=== PATIENT | female | born 1995 | race Caucasian/White ===

== ENCOUNTER 2016-10-05 12:42 | Emergency (ER) | payer SELFPAY ==
[2016-10-05 12:47] VITALS: BP 135/82; BMI 23.6
--- NOTE | 2016-10-05 15:36 | DR.GENAD ---
HPI - PCP Primary Care Physician: CLARE - Complaint/Symptoms Chief Complaint Doctors Comments: Patient admits to taking lots of school book in her shoulder bag. Lately she has noticed pain in right shoulder and between the scapulars Chief Complaint:: PT C/O RT UPPER BACK/ SHOULDER PAIN. PT STATES HER PAIN STARTED THIS PAST WEEK. - Source History Provided: Patient - Mode of Arrival Mode of Arrival: Ambulatory - Timing Onset of Chief Complaint: 10/01/16 PMH - PMH Past Medical History: No Past Surgical History: No Surgical History: No History - Family History History of Family Medical Conditions: No - Social History Does any household member use tobacco: No Alcohol Use: None Do you use any recreational Drugs:: No Lives With: Family Lives Where: Home - infectious screening In the last 2 months have you had wt loss of >10#?: NO Have you had fever, night sweats or hemotysis?: No Have you traveled outside the country in the last 6 months?: No Isolation: Standard ROS - Review of Systems Constitutional: negative: Diaphoresis Eyes: No Symptoms Reported ENTM: No Symptoms Reported Respiratoy: No Symptoms Reported Cardiovascular: No Symptoms Reported Gastrointestinal/Abdominal: No Symptoms Reported Genitourinary: No Symptoms Reported Neurological: No Symptoms Reported Musculoskeletal: No Symptoms Reported Integumentary: No Symptoms Reported Hematologic/Lymphatic: No Symptoms Reported Endocrine: No Symptoms Reported Psychiatric: No Symptoms Reported All Other Systems: Reviewed and Negative PE - Vital Signs Vitals: Temperature 98.3 F Pulse Rate 100 Respiratory Rate 20 Blood Pressure 135/82 O2 Sat by Pulse Oximetry 99 - General Limitations: No Limitations General Appearance: Alert, In No Apparent Distress - Head Head Exam: Normal Inspection, Atraumatic - Eyes Eye exam: Normal Appearance, PERRL, EOMI - ENT ENT Exam: Normal Exam External Ear Exam: Normal External Inspection TM/Canal Exam: Bilateral Normal Nose Exam: Normal Nose Exam Mouth Exam: Normal Inspection Throat Exam: Normal Inspection - Neck Neck Exam: Normal Inspection - Chest Chest Inspection: Normal Inspection - Respiratory Respiratory Exam: Normal Lung Sounds Bilat Respiratory Exam: Bilateral Clear to Auscultation - Cardiovascular Cardiovascular Exam: Regular Rate - Abdominal Exam Abdominal Exam: Normal Inspection Abdominal Tenderness: negative: RUQ, RLQ, LUQ, LLQ, Epigastrium, Suprapubic, Diffuse, Mild, Moderate, Severe, Other - Extremities Extremities Exam: Normal Inspection, Full ROM - Back Back Exam: Normal Inspection, Full ROM - Neurologic Neurological Exam: Alert, Oriented X3, CN II-XII Intact - Psychiatric Psychiatric Exam: Normal Affect, Normal Mood - Skin Skin Exam: Warm, Dry, Intact, Normal Color - Diagnosis Discharge Problem: Muscle spasm - Discharge Plan Condition: Stable - Follow ups/Referrals Follow ups/Referrals: PATTY SPARKS [Primary Care Provider] - 3 days - Instructions
== END 2016-10-05 16:01 | disposition home or self-care (01) ==
LOC: ER 12:42
DX: M62.838 Other muscle spasm (principal)
CPT/HCPCS: 99281; 99282

== ENCOUNTER 2017-04-11 20:35 | Emergency (ER) | payer SELFPAY ==
[2017-04-11 20:42] VITALS: BP 111/77; BMI 23.6
--- NOTE | 2017-04-11 21:09 | DR.GENAD ---
HPI - PCP Primary Care Physician: rosio - Complaint/Symptoms Chief Complaint Doctors Comments: Epigastric abdominal pain for over 1 week now. Location is in her epigastrium. She characterizes this as a sharp pain. It is exacerbated by certain meals. There is no radiation. She denies nausea or vomitting. Chief Complaint:: epigastric pain - Nurses notes reviewed Nurses Notes Review: Yes - Source History Provided: Patient - Mode of Arrival Mode of Arrival: Ambulatory - Timing Onset of Chief Complaint: 04/01/17 PMH - PMH Past Medical History: Yes Past Medical History: Anxiety, GERD Past Medical History Comment: abdominal migraines Past Surgical History: No Surgical History: No History - Family History History of Family Medical Conditions: Yes Family Medical History: Hypertension - Social History Does patient currently use any type of tobacco product: No Have you used tobacco products in the last 12 months: No Type of Tobacco Use: None Does any household member use tobacco: No Alcohol Use: None Do you use any recreational Drugs:: No Lives With: Family Lives Where: Home - infectious screening In the last 2 months have you had wt loss of >10#?: NO Have you had fever, night sweats or hemotysis?: No Have you traveled outside the country in the last 6 months?: No Isolation: Standard ROS - Review of Systems Constitutional: No Symptoms Reported Eyes: No Symptoms Reported ENTM: No Symptoms Reported Respiratoy: No Symptoms Reported Cardiovascular: No Symptoms Reported Gastrointestinal/Abdominal: Abdominal Pain (epigastric area) Genitourinary: No Symptoms Reported Neurological: No Symptoms Reported Musculoskeletal: No Symptoms Reported Integumentary: No Symptoms Reported Hematologic/Lymphatic: No Symptoms Reported Endocrine: No Symptoms Reported Psychiatric: No Symptoms Reported All Other Systems: Reviewed and Negative PE - Vital Signs Vitals: Temperature 98.8 F Pulse Rate 93 Respiratory Rate 16 Blood Pressure 111/77 O2 Sat by Pulse Oximetry 100 - General Limitations: No Limitations General Appearance: Alert, In No Apparent Distress - Head Head Exam: Normal Inspection - Eyes Eye exam: Normal Appearance - ENT ENT Exam: Normal Exam - Neck Neck Exam: Normal Inspection - Chest Chest Inspection: Normal Inspection - Respiratory Respiratory Exam: Normal Lung Sounds Bilat Respiratory Exam: Bilateral Clear to Auscultation - Cardiovascular Cardiovascular Exam: Regular Rate, Normal Rhythm - Abdominal Exam Abdominal Exam: Normal Inspection, Normal Bowel Sounds, Soft, Tenderness ( epigatric area). negative: Distention, Guarding, Rebound, Rigidity, Dimnished Bowel Sounds, Hyperactive Bowel Sounds, Organomegaly, Ascites, Mass, Pulsatile Mass, Hernia Abdominal Tenderness: Epigastrium - Extremities Extremities Exam: Normal Inspection - Back Back Exam: Normal Inspection - Neurologic Neurological Exam: Alert, Oriented X3 - Psychiatric Psychiatric Exam: Normal Affect, Normal Mood - Skin Skin Exam: Warm, Dry, Intact, Normal Color Course - Reevaluation 1st: Improved - Education/Counseling Education/Counseling: Patient, Family, Education, Counseling Educated On: Treatment, Diagnosis, Prognosis, Needs for Follow Up ROR - Labs Reviewed Result Diagrams: 04/11/17 21:16 04/11/17 21:16 Laboratory: WBC 9.4 X10^3/uL (3.6-10.0) 04/11/17 21:16 RBC 4.24 X10^6/uL (3.5-5.4) 04/11/17 21:16 Hgb 13.3 g/dL (12.0-16.0) 04/11/17 21:16 Hct 37.3 % (36.0-47.0) 04/11/17 21:16 MCV 88.0 fL (80.0-100.0) 04/11/17 21:16 MCH 31.3 pg (27.0-34.0) 04/11/17 21:16 MCHC 35.6 g/dL (33.0-35.0) H 04/11/17 21:16 RDW 12.3 % (11.6-16.5) 04/11/17 21:16 Plt Count 261 X10^3/uL (150.0-450.0) 04/11/17 21:16 MPV 7.5 fL (7.4-11.0) 04/11/17 21:16 Neut % 52.0 % (42.0-75.0) 04/11/17 21:16 Lymph % 30.6 % (21.0-51.0) 04/11/17 21:16 [place] % 6.4 % (0.0-13.0) 04/11/17 21:16 Eos % 10.4 % (0.9-2.9) H 04/11/17 21:16 Baso % 0.6 % (0.2-1.0) 04/11/17 21:16 Neut # 4.9 x10^3/uL (2.2-4.8) H 04/11/17 21:16 Lymph # 2.9 X10^3/uL (1.3-2.9) 04/11/17 21:16 [place] # 0.6 x10^3/uL (0.3-0.8) 04/11/17 21:16 Eos # 1.0 x10^3/uL (0.0-0.2) H 04/11/17 21:16 Baso # 0.1 X10^3/uL (0.0-0.1) 04/11/17 21:16 Absolute Nucleated RBC 0.0 /100WBC 04/11/17 21:16 Sodium 140 mmol/L (136-145) 04/11/17 21:16 Corrected Sodium TNP 04/11/17 21:16 Potassium 3.5 mmol/L (3.5-5.1) 04/11/17 21:16 Chloride 104 mmol/L (98-107) 04/11/17 21:16 Carbon Dioxide 26.5 mmol/L (21-32) 04/11/17 21:16 BUN 9 mg/dL (7-18) 04/11/17 21:16 Creatinine 0.79 mg/dL (0.55-1.02) 04/11/17 21:16 Est GFR (MDRD) Af Amer > 60 (>60) 04/11/17 21:16 Est GFR (MDRD) Non-Af > 60 (>60) 04/11/17 21:16 Glucose 89 mg/dL (65-99) 04/11/17 21:16 Calcium 8.5 mg/dL (8.5-10.1) 04/11/17 21:16 Corrected Calcium TNP 04/11/17 21:16 Total Bilirubin 0.30 mg/dL (0.2-1.0) 04/11/17 21:16 AST 15 Units/L (15-37) 04/11/17 21:16 ALT 21 Units/L (12-78) 04/11/17 21:16 Alkaline Phosphatase 77 Units/L (46-116) 04/11/17 21:16 Total Protein 6.9 g/dL (6.4-8.2) 04/11/17 21:16 Albumin 3.5 g/dL (3.4-5.0) 04/11/17 21:16 Globulin 3.4 g/dL (2.5-4.5) 04/11/17 21:16 Albumin/Globulin Ratio 1.0 Ratio (1.1-2.1) L 04/11/17 21:16 Amylase 80 Units/L (25-115) 04/11/17 21:16 Lipase 162 Units/L (73-393) 04/11/17 21:16 Specimen Type Clean catch urine 04/11/17 21:24 Urine Color Yellow (YELLOW) 04/11/17 21:24 Urine Appearance Clear (CLEAR) 04/11/17 21:24 Urine pH 7.0 (5.0 - 8.0) 04/11/17 21:24 Ur Specific Alexis 1.015 (1.000-1.030) 04/11/17 21:24 Urine Protein Negative (NEGATIVE) 04/11/17 21:24 Urine Glucose (UA) Negative (NEGATIVE) 04/11/17 21:24 Urine Ketones Negative (NEGATIVE) 04/11/17 21:24 Urine Occult Blood 2+ (NEGATIVE) 04/11/17 21:24 Urine Nitrite Negative (NEGATIVE) 04/11/17 21:24 Urine Bilirubin Negative (NEGATIVE) 04/11/17 21:24 Urine Urobilinogen Normal (NORMAL) 04/11/17 21:24 Ur Leukocyte Esterase Negative (NEGATIVE) 04/11/17 21:24 Urine RBC 2-6 /HPF (NONE SEEN) 04/11/17 21:24 Urine WBC 0-3 /HPF (NONE SEEN) 04/11/17 21:24 Ur Squamous Epith Cells Rare /HPF (NEGATIVE) 04/11/17 21:24 Urine Bacteria Negative /HPF (NEGATIVE) 04/11/17 21:24 Ur Culture Indicated? No/not indicated 04/11/17 21:24 H. pylori IgG Antibody Negative (NEGATIVE) 04/11/17 21:16 - Diagnosis Discharge Problem: Epigastric abdominal pain - Discharge Plan Condition: Stable - Follow ups/Referrals Follow ups/Referrals: NFD,None [Primary Care Provider] - 3 days - Instructions
[2017-04-11 21:27] LABS: BASOPHILS # (AUTO) 0.1 X10^3/uL (0.0-0.1); BASOPHILS % (AUTO) 0.6 % (0.2-1.0); EOSINOPHILS % (AUTO) 10.4 % (0.9-2.9); HEMATOCRIT 37.3 % (36.0-47.0); HEMOGLOBIN 13.3 g/dL (12.0-16.0); LYMPHOCYTES # (AUTO) 2.9 X10^3/uL (1.3-2.9); LYMPHOCYTES % (AUTO) 30.6 % (21.0-51.0); MEAN CORPUSCULAR HEMOGLOBIN 31.3 pg (27.0-34.0); MEAN CORPUSCULAR HGB CONC 35.6 g/dL (33.0-35.0); MEAN PLATELET VOLUME 7.5 fL (7.4-11.0); MONOCYTES # (AUTO) 0.6 x10^3/uL (0.3-0.8); MONOCYTES % (AUTO) 6.4 % (0.0-13.0); NEUTROPHILS # (AUTO) 4.9 x10^3/uL (2.2-4.8); PLATELET COUNT 261 X10^3/uL (150.0-450.0); RED BLOOD COUNT 4.24 X10^6/uL (3.5-5.4); RED CELL DISTRIBUTION WIDTH 12.3 % (11.6-16.5); WHITE BLOOD COUNT 9.4 X10^3/uL (3.6-10.0)
[2017-04-11] MEDS ORDERED: LEVSIN/MAALOX/LIDOC VISC ONE (21:28)
[2017-04-11] MEDS ORDERED: LEVSIN/MAALOX/LIDOC VISC PO ONE (21:29)
[2017-04-11 21:32] LABS: BILIRUBIN,URINE NEGATIVE (NEGATIVE); BLOOD/HEMOGLOBIN,URINE 2+ (NEGATIVE); GLUCOSE, URINE NEGATIVE (NEGATIVE); KETONES,URINE NEGATIVE (NEGATIVE); LEUKOCYTE ESTERASE ,URINE NEGATIVE (NEGATIVE); NITRITES,URINE NEGATIVE (NEGATIVE); PROTEIN,URINE NEGATIVE (NEGATIVE); UROBILINOGEN,URINE NORMAL (NORMAL)
[2017-04-11 21:34] LABS: ALANINE AMINOTRANSFERASE 21 Units/L (12-78); ALBUMIN 3.5 g/dL (3.4-5.0); ALKALINE PHOSPHATASE 77 Units/L (46-116); AMYLASE 80 Units/L (25-115); ASPARTATE AMINO TRANSFERASE 15 Units/L (15-37); BLOOD UREA NITROGEN 9 mg/dL (7-18); CALCIUM 8.5 mg/dL (8.5-10.1); CARBON DIOXIDE 26.5 mmol/L (21-32); CHLORIDE 104 mmol/L (98-107); CREATININE 0.79 mg/dL (0.55-1.02); LIPASE 162 Units/L (73-393); SODIUM 140 mmol/L (136-145); TOTAL PROTEIN 6.9 g/dL (6.4-8.2); eGFR BLACK RACES > 60 (>60); eGFR NON BLACK RACES > 60 (>60)
[2017-04-11 21:38] LABS: APPEARANCE,URINE CLEAR (CLEAR); BACTERIA,URINE NEGATIVE /HPF (NEGATIVE); COLOR,URINE YELLOW (YELLOW); SQUAMOUS EPITHELIAL CELL,UR RARE /HPF (NEGATIVE)
[2017-04-11] MEDS ORDERED: NexIUM PO ONE (22:35)
[2017-04-12] MEDS ORDERED: NexIUM PO ONE (22:31)
== END 2017-04-11 22:50 | disposition home or self-care (01) ==
LOC: ER 20:35
DX: R10.13 Epigastric pain (principal)
CPT/HCPCS: 36415; 80053; 81001; 82150; 83690; 85025; 86677; 99282; 99283

== ENCOUNTER 2017-04-23 10:33 | Day surgery (SDC) | payer SELFPAY ==
[2017-04-23] MEDS ORDERED: D5 LR 1000 ML 1,000 ML IV ONE (10:39)
[2017-04-23] MEDS ORDERED: DIPRIVAN VIAL 20 ML ONE ×2 (11:45→11:51)
[2017-04-23 14:48] VITALS: BP 117/60
== END 2017-04-23 12:20 | disposition home or self-care (01) ==
LOC: SURG1 10:33
PROVIDERS: ATTEND Internal Medicine Gastroenterology
PROC: 0DB38ZX Excision of Lower Esophagus, Via Natural or Artificial Opening Endoscopic, Diagnostic (ICD-10-PCS; principal; 2017-04-23 16:30)
PROC: 0DJ08ZZ Inspection of Upper Intestinal Tract, Via Natural or Artificial Opening Endoscopic (ICD-10-PCS; principal; 2017-04-23 16:30)
PROC: 0D757ZZ Dilation of Esophagus, Via Natural or Artificial Opening (ICD-10-PCS; principal; 2017-04-23 16:30)
PROC: 0DB88ZX Excision of Small Intestine, Via Natural or Artificial Opening Endoscopic, Diagnostic (ICD-10-PCS; principal; 2017-04-23 16:30)
PROC: 0DB68ZX Excision of Stomach, Via Natural or Artificial Opening Endoscopic, Diagnostic (ICD-10-PCS; principal; 2017-04-23 16:30)
DX: R10.13 Epigastric pain (principal); R11.0 Nausea; K21.9 Gastro-esophageal reflux disease without esophagitis; R13.19 Other dysphagia; K20.8 Other esophagitis; K22.4 Dyskinesia of esophagus; K22.2 Esophageal obstruction; K29.60 Other gastritis without bleeding
CPT/HCPCS: A4217; J3490; J7120